=== PATIENT | female | born 1945 | race Hispanic/Latino ===

== ENCOUNTER → 2019-05-25 | Outpatient (CLI) | payer OTHER ==
[~2019-05-25] VITALS: Ht 162.6 cm; Wt 58.5 kg
[~2019-05-25] MED LIST: ASPI-555 PO; ATOR10 PO; CLOP75TA14 PO; LEVO125T95 PO; METO25 PO; NITR0.4T50 SL; VALS1TAB80 PO
[2019-05-25 11:50] VITALS: BP 181/89
[2019-05-25 12:18] LABS: APPEARANCE,URINE Clear (CLEAR); BILIRUBIN,URINE Negative (NEGATIVE); COLOR,URINE Yellow (YELLOW); GLUCOSE, URINE (UA) Negative (NEGATIVE); KETONES,URINE Negative (NEGATIVE); LEUKOCYTE ESTERASE ,URINE Moderate (NEGATIVE); NITRATE,URINE Negative (NEGATIVE); OCCULT BLOOD,URINE Negative (NEGATIVE); PROTEIN,URINE Negative (NEGATIVE); UROBILINOGEN,URINE 0.2 mg/dL (0.2-1.0)
[2019-05-25 12:22] LABS: CREATININE 0.8 mg/dL (0.5-1.5); POTASSIUM 3.9 mmol/L (3.5-5.1)
[2019-05-25 12:24] LABS: INR 0.96 (0.85-1.15); PARTIAL THROMBOPLASTIN TIME 26.9 SEC (26.3-35.5); PROTHROMBIN TIME 10.1 SEC (9.6-11.6)
[2019-05-25 12:28] LABS: BASOPHILS % (AUTO) 0.8 % (0.0-5.0); EOSINOPHILS % (AUTO) 1.4 % (0.0-8.0); HEMATOCRIT 36.7 % (36-48); LYMPHOCYTES % (AUTO) 33.2 % (21.0-51.0); MEAN CORPUSCULAR HEMOGLOBIN 30.2 pg (27.0-33.0); MEAN CORPUSCULAR HGB CONC 33.2 g/dL (32.0-36.0); MEAN CORPUSCULAR VOLUME 90.8 fL (79-99); MONOCYTES % (AUTO) 9.3 % (3.0-13.0); PLATELET COUNT (AUTO) 247 K/uL (130-400); RED BLOOD CELL COUNT(AUTO) 4.04 MIL/uL (4.00-5.50); RED CELL DISTRIBUTION WIDTH 13.4 % (11.0-15.5); WHITE BLOOD COUNT (AUTO) 7.7 K/uL (4.8-10.8)
[2019-05-25 12:38] LABS: BACTERIA,URINE Rare /HPF (None Seen); RBC,URINE 0-1 /HPF (0-1); SQUAMOUS EPITHELIAL CELL,UR Rare /HPF (0-2)
== END | disposition home or self-care (01) ==
LOC: DAH 10:00 → EDSTATUS 05-27 12:00
PROVIDERS: ATTEND Internal Medicine Cardiovascular Disease
DX: I20.9 Angina pectoris, unspecified (principal); R94.39 Abnormal result of other cardiovascular function study
CPT/HCPCS: 36415; 80048; 81001; 85025; 85610; 85730; 93005

== ENCOUNTER 2019-06-24 05:26 | Emergency (ER) | payer OTHER ==
[~2019-06-24 05:26] MED LIST changes: +AMLO2.5T4 PO; -ATOR10 PO; +CARV12.511 PO; +CLOP75TA32 PO; +ISOS30TA6 PO; -METO25 PO; +PRAV40TA3 PO; +SENNA PO; -VALS1TAB80 PO; +[UNRECOGNIZED DRUG - CODE] PO
[2019-06-24] MEDS ORDERED: ASPIRIN 325 MG TABLET ONE (05:37)
[2019-06-24 05:44] LABS: EOSINOPHILS % (AUTO) 1.5 % (0.0-8.0); HEMATOCRIT 39.4 % (36-48); LYMPHOCYTES % (AUTO) 34.5 % (21.0-51.0); MEAN CORPUSCULAR HEMOGLOBIN 29.9 pg (27.0-33.0); MEAN CORPUSCULAR HGB CONC 33.2 g/dL (32.0-36.0); MONOCYTES % (AUTO) 9.9 % (3.0-13.0); NEUTROPHILS % (AUTO) 52.4 % (40.0-77.0); PLATELET COUNT (AUTO) 235 K/uL (130-400); RED BLOOD CELL COUNT(AUTO) 4.38 MIL/uL (4.00-5.50); RED CELL DISTRIBUTION WIDTH 13.3 % (11.0-15.5); WHITE BLOOD COUNT (AUTO) 8.8 K/uL (4.8-10.8)
[2019-06-24 05:50] LABS: POTASSIUM 3.9 mmol/L (3.5-5.1)
[2019-06-24 05:56] LABS: BILIRUBIN,TOTAL 0.4 mg/dL (0.2-1.0); INR 0.9 (0.85-1.15); PARTIAL THROMBOPLASTIN TIME 25.1 SEC (26.3-35.5); PROTHROMBIN TIME 9.5 SEC (9.6-11.6); TOTAL PROTEIN, SERUM 7.7 g/dL (6.0-8.3)
[2019-06-24 06:08] LABS: B-TYPE NATRIURETIC PEPTIDE 221 pg/mL (0-100)
== END 2019-06-24 07:00 | disposition home or self-care (01) ==
LOC: EDH 05:26
DX: R07.89 Other chest pain (principal); R14.3 Flatulence; I10 Essential (primary) hypertension; E03.9 Hypothyroidism, unspecified; I25.2 Old myocardial infarction; Z90.710 Acquired absence of both cervix and uterus; Z98.890 Other specified postprocedural states; Z88.1 Allergy status to other antibiotic agents
CPT/HCPCS: 36415; 71045; 80053; 82550; 83690; 83880; 84484; 85025; 85610; 85730; 93005

== ENCOUNTER 2019-06-24 06:38 | Observation (INO) | payer OTHER ==
[2019-06-22 14:29] LABS: BASOPHILS % (AUTO) 0.7 % (0.0-5.0); EOSINOPHILS % (AUTO) 1.2 % (0.0-8.0); HEMATOCRIT 38.9 % (36-48); LYMPHOCYTES % (AUTO) 33.9 % (21.0-51.0); MEAN CORPUSCULAR HEMOGLOBIN 30.2 pg (27.0-33.0); MEAN CORPUSCULAR HGB CONC 32.9 g/dL (32.0-36.0); MEAN CORPUSCULAR VOLUME 91.7 fL (79-99); MONOCYTES % (AUTO) 8.1 % (3.0-13.0); PLATELET COUNT (AUTO) 249 K/uL (130-400); RED BLOOD CELL COUNT(AUTO) 4.24 MIL/uL (4.00-5.50); RED CELL DISTRIBUTION WIDTH 13.3 % (11.0-15.5); WHITE BLOOD COUNT (AUTO) 8.6 K/uL (4.8-10.8)
[2019-06-22 14:30] LABS: APPEARANCE,URINE Clear (CLEAR); BILIRUBIN,URINE Negative (NEGATIVE); COLOR,URINE Yellow (YELLOW); GLUCOSE, URINE (UA) Negative (NEGATIVE); KETONES,URINE Trace mg/dL (NEGATIVE); LEUKOCYTE ESTERASE ,URINE Small (NEGATIVE); NITRATE,URINE Negative (NEGATIVE); OCCULT BLOOD,URINE Negative (NEGATIVE); PH,URINE 5.5 (5.0-8.0); PROTEIN,URINE Negative (NEGATIVE)
[2019-06-22 14:38] LABS: CREATININE 1.2 mg/dL (0.5-1.5); POTASSIUM 3.9 mmol/L (3.5-5.1)
[2019-06-22 14:41] VITALS: BP 147/57
[2019-06-22 14:42] LABS: INR 0.94 (0.85-1.15); PARTIAL THROMBOPLASTIN TIME 25.2 SEC (26.3-35.5); PROTHROMBIN TIME 9.9 SEC (9.6-11.6)
[2019-06-22 14:49] LABS: BACTERIA,URINE Few /HPF (None Seen); RBC,URINE None Seen /HPF (0-1); SQUAMOUS EPITHELIAL CELL,UR 0-2 /HPF (0-2)
--- NOTE | 2019-06-23 19:49 | NUR ---
REPORTED ABNORMAL LABS TO EZ CLIFTON FOR DR. MO, NO NEW ORDERS OK TO PROCEED.
[~2019-06-24] VITALS: Ht 163.8 cm; Wt 57.8 kg
[2019-06-24] VITALS (18 sets, daily range): BP systolic 129–167; BP diastolic 53–85
[~2019-06-24 06:38] MED LIST changes: +SODIUM CHLORIDE 0.9% 500ML 500 ML IV SCH
[2019-06-24] MEDS ORDERED: HEPARIN SODIUM 1000UNIT/ML 10ML VIAL ONE (07:14)
[2019-06-24] MEDS ORDERED: IOHEXOL 350 MG/ML 100ML INFUS..BTL IV ONE (07:15)
[2019-06-24] MEDS ORDERED: LIDOCAINE HCL 2% 20ML ONE (07:15)
[2019-06-24] MEDS ORDERED: IOHEXOL-350 50ML VIAL IV ONE ×2 (07:15→08:01)
[2019-06-24] MEDS ORDERED: SODIUM CHLORIDE 0.9% 1000ML 1,000 ML IV ONE (07:59)
[2019-06-24] MEDS ORDERED: NITROGLYCERIN 4.1 GM SPRAY TL ONE (08:38)
[2019-06-24] MEDS ORDERED: NITROGLYCERIN 0.4 MG SL TAB SL PRN (08:45)
[2019-06-24] MEDS: CLOPIDOGREL BISULFATE 75 MG TAB PO SCH (09:00)
[2019-06-24] MEDS: CARVEDILOL 12.5 MG TABLET PO SCH ×2 (09:00→20:31)
[2019-06-24] MEDS: ISOSORBIDE MONO 30MG TAB SR PO SCH (09:00)
[2019-06-24] MEDS: ASPIRIN 81 MG EC TAB PO SCH (09:00)
[2019-06-24] MEDS ORDERED: CLOPIDOGREL BISULFATE 75 MG TAB PO SCH (09:00)
[2019-06-24] MEDS ORDERED: LEVOTHYROXINE 125 MCG TABLET PO SCH (09:00)
[2019-06-24] MEDS: SENNOSIDES 8.6 MG TABLET PO SCH (09:00)
[2019-06-24] MEDS: LORATADINE 10 MG TABLET PO SCH (09:00)
--- NOTE | 2019-06-24 10:09 | NUR ---
NURIA CLIFTON, AWARE OF CONSULT.
--- NOTE | 2019-06-24 10:30 | NUR ---
PT TSF BY BED TO ROOM 225, REPORT GIVEN TO JOHN RICH RN/. PT . V/S STABLE DRESSING DRY AND INTACT, NO HEMATOMA, NO PAIN DP PRESENT.
--- NOTE | 2019-06-24 10:35 | NUR ---
ARRIVAL TO FLOOR PT IS AAOX3 DENIES CP DENIES SOB. ARRIVED WITH 6FR SHEATH TO RIGHT GROIN. PTT ORDERED PROTOCOL. BEDREST IN PROGRESS. FAMILY IS AT BEDSIDE.
[2019-06-24] MEDS ORDERED: ACETAMINOPHEN-CODEINE 300/30MG TAB PO PRN ×2 (13:00)
[2019-06-24] MEDS ORDERED: ONDANSETRON HCL 4 MG/2 ML VIAL IVP PRN (13:00)
[2019-06-24] MEDS ORDERED: ACETAMINOPHEN 325 MG TAB PO PRN (13:00)
[2019-06-24] MEDS ORDERED: HYDRALAZINE HCL 20 MG/ML VIAL IV PRN (13:00)
[2019-06-24] MEDS ORDERED: IPRATROPIUM/ALBUTEROL SULFATE 3 ML SOLUTION IH PRN (13:00)
[2019-06-24] MEDS ORDERED: LACTULOSE 20 GM/30 ML UDCUP PO PRN (13:00)
--- NOTE | 2019-06-24 15:30 | NUR ---
PT CARE Right femoral arterial line discontinued per routine. D-stat utilized. Manual pressure applied x20min. Hemostasis achieved and D-stat drsg applied. Pt tolerated with minimal discomfort. VS maintained throughout. Pt repositioned for comfort - reinforced ongoing bedrest. Pt voiced understanding. Needed items within reach.
--- NOTE | 2019-06-24 17:45 | NUR ---
BEDREST IN PROGRESS POST SHEATH PULL. RIGHT GROIN REMAINS CLEAN AND DRY.
--- NOTE | 2019-06-24 19:20 | NUR ---
RIGHT GROIN SOFT AND NON TENDER. PT IN BEDREST UNTIL MIDNIGHT. STATES SOME NAUSEA, GIVEN ZOFRAN.
[2019-06-24] MEDS ORDERED: PANTOPRAZOLE SODIUM 40 MG TABLET.DR PO SCH (20:00)
[2019-06-24] MEDS ORDERED: SENNOSIDES 8.6 MG TABLET PO SCH (20:00)
[2019-06-24] MEDS: ATORVASTATIN CALCIUM 10 MG TABLET PO SCH (20:31)
[2019-06-24] MEDS: AMLODIPINE BESYLATE 2.5 MG TAB PO SCH (20:32)
[2019-06-25] VITALS (7 sets, daily range): BP systolic 106–133; BP diastolic 46–62
[2019-06-25 04:54] LABS: HEMATOCRIT 34.8 % (36-48); MEAN CORPUSCULAR HEMOGLOBIN 30.3 pg (27.0-33.0); MEAN CORPUSCULAR HGB CONC 33.3 g/dL (32.0-36.0); MEAN CORPUSCULAR VOLUME 90.9 fL (79-99); PLATELET COUNT (AUTO) 204 K/uL (130-400); RED BLOOD CELL COUNT(AUTO) 3.83 MIL/uL (4.00-5.50); RED CELL DISTRIBUTION WIDTH 13.6 % (11.0-15.5); WHITE BLOOD COUNT (AUTO) 9.8 K/uL (4.8-10.8)
[2019-06-25 05:19] LABS: PHOSPHORUS 3.2 mg/dL (2.5-4.9); POTASSIUM 3.9 mmol/L (3.5-5.1)
[2019-06-25] MEDS: LEVOTHYROXINE 125 MCG TABLET PO SCH (05:39)
[2019-06-25] MEDS ORDERED: PANTOPRAZOLE SODIUM 40 MG TABLET.DR ONE (07:17)
[2019-06-25] MEDS: PANTOPRAZOLE SODIUM 40 MG TABLET.DR PO SCH (07:30)
[2019-06-25] MEDS: SENNOSIDES 8.6 MG TABLET PO SCH (07:30)
[2019-06-25] MEDS: CLOPIDOGREL BISULFATE 75 MG TAB PO SCH (07:30)
[2019-06-25] MEDS: ASPIRIN 81 MG EC TAB PO SCH (07:30)
[2019-06-25] MEDS: LORATADINE 10 MG TABLET PO SCH (07:30)
[2019-06-25] MEDS: ISOSORBIDE MONO 30MG TAB SR PO SCH (07:31)
[2019-06-25] MEDS: CARVEDILOL 12.5 MG TABLET PO SCH ×2 (07:31→20:25)
--- NOTE | 2019-06-25 08:00 | NUR ---
ASSESSMENT PT IS AAOX3 DENIES CP DENIES SOB DENIES NV NO COMPLAINTS SITTING UP IN CHAIR. RIGHT GROIN WNL DSTAT DRESSING IN PLACE. PATIENT STATES SHE WANTS SURGERY DURING THIS ADMISSION AND DOESN'T WANT TO GO HOME AND COME BACK. DR MO ROUNDED AND UPDATED ON HER WANTING SURGERY.
--- NOTE | 2019-06-25 11:26 | NUR ---
Yumiko BROWN AWARE OF PATIENTS WISHES TO HAVE SURGERY DURING THIS ADMISSION
--- NOTE | 2019-06-25 14:00 | NUR ---
DR CHAVES ROUNDED SAW PATIENT, STATES HE DOESN'T THINK HE CAN OPERATE PT ON THIS ADMISSION AND WANTS DR MO TO CONSIDER MIN INV VALVE ONLY WITHOUT CABG. CALLED [facility], SPOKE TO EZ MCGHEE AND RELAYED THIS INFO TO HIM. STATES PATIENT HAS CAD THAT NEEDS SURGERY WELL NOT JUST VALVE INTERVENTION. ABLE STATES HE WILL TELL DR MO TO CALL DR CHAVES.
--- NOTE | 2019-06-25 14:12 | NUR ---
DCP: HOME TO SISTERs vs Home Sw met with pt who states she lives alone. Pt's dies last month, her children all live in [place]. Pt states she has yissel hollis and w/c from , no HH, was approved for 2hrs provider services thru [facility]. PCP is Dr Callahan and she uses [facility] for pharm. Pt reports Dr Cortes spoke to her and he is going to discuss surgery with Dr Stringer to decided if pt will have done this admission or have her return. Pt states if she has it, she will dc to sister Lupe's home, if not, she will dc home. Addendum: 06/25/19 at 1416 by WOODY RIBERA Amended: Links added.
--- NOTE | 2019-06-25 17:00 | NUR ---
DR CLEMENTS ROUNDED UPDATE GIVEN ON PENDING DR MO TO TALK TO DR CHAVES REGARDING CABG/VALVE SURGERY. NO NEW ORDERS RECEIVED.
[2019-06-25] MEDS: AMLODIPINE BESYLATE 2.5 MG TAB PO SCH (20:24)
[2019-06-25] MEDS: ATORVASTATIN CALCIUM 10 MG TABLET PO SCH (20:24)
--- NOTE | 2019-06-25 20:48 | NUR ---
SPOKE WITH MADISON REGARDING PATIENTS SURGICAL PLAN Madison rounding and asked if Dr. Stringer had spoken with Dr. Cortes regarding MICS VR or CABG W AVR. Patient wanting to stay until surgery to be done. Madison stated that the plan was for patient to return for surgery once Dr. Cortes returned from [facility]. Asked what surgical plan was but madison stated she did not know the exact details
[2019-06-26 03:00] VITALS: BP 127/54
[2019-06-26 05:28] LABS: HEMATOCRIT 32.3 % (36-48); MEAN CORPUSCULAR HEMOGLOBIN 29.9 pg (27.0-33.0); MEAN CORPUSCULAR HGB CONC 33.1 g/dL (32.0-36.0); MEAN CORPUSCULAR VOLUME 90.2 fL (79-99); PLATELET COUNT (AUTO) 192 K/uL (130-400); RED BLOOD CELL COUNT(AUTO) 3.58 MIL/uL (4.00-5.50); RED CELL DISTRIBUTION WIDTH 13.5 % (11.0-15.5)
[2019-06-26] MEDS: LEVOTHYROXINE 125 MCG TABLET PO SCH (05:41)
[2019-06-26 05:57] LABS: CREATININE 0.9 mg/dL (0.5-1.5); MAGNESIUM 1.9 mg/dL (1.80-2.40); PHOSPHORUS 2.6 mg/dL (2.5-4.9); POTASSIUM 3.9 mmol/L (3.5-5.1)
[2019-06-26 07:51] VITALS: BP 132/60
[2019-06-26] MEDS: ASPIRIN 81 MG EC TAB PO SCH (09:59)
[2019-06-26] MEDS: CLOPIDOGREL BISULFATE 75 MG TAB PO SCH (09:59)
[2019-06-26] MEDS: LORATADINE 10 MG TABLET PO SCH (09:59)
[2019-06-26] MEDS: SENNOSIDES 8.6 MG TABLET PO SCH (10:00)
[2019-06-26] MEDS: ISOSORBIDE MONO 30MG TAB SR PO SCH (10:00)
[2019-06-26] MEDS: PANTOPRAZOLE SODIUM 40 MG TABLET.DR PO SCH (10:00)
[2019-06-26] MEDS: CARVEDILOL 12.5 MG TABLET PO SCH (10:01)
[2019-06-26 11:48] VITALS: BP 133/64
[2019-06-26 15:26] VITALS: BP 141/67
== END 2019-06-26 18:30 | disposition home or self-care (01) ==
LOC: DAH 06:38 → DAHIP 06:39 → DAH 06:39 → 2DH 10:30
PROVIDERS: ADMIT Internal Medicine Pulmonary Disease; ATTEND Internal Medicine Pulmonary Disease
DX: I25.119 Atherosclerotic heart disease of native coronary artery with unspecified angina pectoris (principal); R94.39 Abnormal result of other cardiovascular function study; I34.0 Nonrheumatic mitral (valve) insufficiency; I10 Essential (primary) hypertension; E03.9 Hypothyroidism, unspecified; E78.5 Hyperlipidemia, unspecified; Z95.5 Presence of coronary angioplasty implant and graft; Z90.710 Acquired absence of both cervix and uterus; Z95.2 Presence of prosthetic heart valve; Z79.01 Long term (current) use of anticoagulants; Z98.890 Other specified postprocedural states
CPT/HCPCS: 36415 ×5; 71045 ×3; 80048 ×3; 80053; 81001; 82550; 83690; 83735 ×2; 83880; 84100 ×2; 84484; 85025 ×2; 85027 ×2; 85347; 85610 ×2; 85730 ×5; 93005 ×2; 93459; 94664; 96374; 99285; A4215; A4216; A4221; A4222; A4223 ×2; A4606; A4663; C1769 ×3; C1887; C1894; G0378 ×19; J1644 ×3; J2405; J3490; J7030; Q9965 ×2; Q9967 ×2